=== PATIENT | female | born 1965 | race Caucasian/White ===

== ENCOUNTER 2022-07-29 16:17 | Emergency (ER) | payer BC, SELFPAY ==
--- NOTE | 2022-07-29 16:34 | ED.EAR ---
HPI - Ear Problem General Chief complaint: Ear Stated complaint: loss of hearing lt ear Time Seen by Provider: 07/29/22 16:34 Source: patient Mode of arrival: ambulatory Limitations: no limitations History of Present Illness HPI Narrative: Ms. Buck is a 56-year-old female patient presenting to the clinic today with complaints of hearing loss in her left ear x1 day. She reports she has been deaf in the right ear since . She reports that she is unable to hear in her left ear as everything is muffled. She denies any pain or discharge coming from the ear. She denies wearing a hearing aid in the left ear. She denies any headache, dizziness, or nausea/ vomiting. States that she has had ringing in the ear for a long time. No history of M?ni?re's disease and denies any dizziness currently but states that sometimes she is unsteady on her feet. Reports that she has recently saw an ENT 2 weeks ago for her right ear. Related Data Home Medications Medication Instructions Recorded Confirmed oxybutynin chloride 10 mg 10 mg PO DAILY 07/29/22 07/29/22 tablet,extended release 24 hr sertraline 25 mg tablet 25 mg DAILY 07/29/22 07/29/22 Allergies Allergy/AdvReac Type Severity Reaction Status Date / Time No Known Allergies Allergy Verified 07/29/22 16:44 Review of Systems Review of Systems: Pertinent positives per HPI. Patient denies any fever, chills, rash, headache, visual changes, dizziness, cough, runny nose, sore throat, shortness of breath, chest pain, palpitations, nausea, vomiting, diarrhea, constipation, abdominal pain, or any urinary issues. PMFSH Family History Family History Mother Hypertension Father Family history of diabetes mellitus in first degree relative Family history of heart disease in male family member before age 55 Social History Social History Smoking status: Never smoker Alcohol intake: never Comments At the time of my signature, I reviewed and agree with the nursing past medical, surgical, social, and family history. There is no relevant family history pertinent to the patient complaint. Exam Narrative: General: Well-developed, well nourished, in no apparent distress Head: Normocephalic, atraumatic Eyes: Pupils equally round and reactive to light bilaterally, EOM intact, sclera and conjunctive clear, no discharge, lids normal Ears: Right TM intact and opaque, left TM intact and clear, ear canals clear, no drainage, grossly hearing normal. Nose: Nares patent, no discharge, no inflammation, no sinus tenderness. Mouth: Oropharynx without lesions or masses, good dentition, MMM. Neck: Supple, trachea midline, no enlargement of anterior or posterior cervical nodes, no thyroid masses or goiter palpable. Cardio: Regular rate and rhythm, s1 and s2 normal, no murmur appreciated. Resp: Clear to auscultation bilaterally anteriorly and posteriorly, no rhonchi, rales, wheezing or rubs Neuro: Conscious alert and oriented x4, able to lip read and answer questions appropriately, definite hearing loss to the left ear likely sensorineural Course Course Emergency Course: Portions of this record may have been created with voice recognition software. Level of Care: Express Care Visit Vital Signs Vital signs: Vital signs reviewed Medical Decision Making [facility] Narrative Medical decision making narrative: At the time of visit patient is resting comfortably on the exam table. I suspect the patient has sensorineural hearing loss. Her ear canal is clear and tympanic membrane is clear. I will start her on a prescription of prednisone 60 mg daily x10 days. She is to contact ENT doctor tomorrow to be evaluated as soon as possible. Supportive measures were discussed with the patient she voiced understanding of discharge instructions and agrees to treatment plan Differential
[2022-07-29 16:39] VITALS: BP 145/87; PULSE 66; RESP 18; TEMP 36.6; O2SAT 99
== END 2022-07-29 17:10 | disposition home or self-care (01) ==
PROVIDERS: Emergency Provider Nurse Practitioner Family; PCP Physician Assistant Medical
DX: H91.92 Unspecified hearing loss, left ear (principal); F32.A Depression, unspecified
CPT/HCPCS: 99203; G0463

== ENCOUNTER 2022-10-11 18:16 | Emergency (ER) | payer BC, SELFPAY ==
[2022-10-11 18:20] VITALS: BP 159/96; PULSE 71; RESP 16; TEMP 36.6; O2SAT 97
--- NOTE | 2022-10-11 20:07 | ED.EAR ---
HPI - Ear Problem General Chief complaint: Ear Stated complaint: can't hear out of her left ear, new Time Seen by Provider: 10/11/22 19:58 Source: patient, RN notes reviewed and old records reviewed Mode of arrival: ambulatory Limitations: no limitations History of Present Illness HPI Narrative: This is a 57 year old female with history of deafness to right ear who presents for evaluation of decreased hearing from her left ear. She has been having decreased hearing from her left ear in July and at that time she was started on steroids. She had improvement initially but she has noticed since September 29 that she has worsening hearing again. She is having a buzzing in her ear. She has been unable to get in to see ENT since symptoms worsened. She was started on Prednisone 30 mg by PCP a few days ago. She denies fever, chills, vertigo, vomiting, focal weakness or difficulty walking. She wants to make sure she does not have ear wax impaction or ear infection. She reports mild frontal headache. Related Data Home Medications Medication Instructions Recorded Confirmed oxybutynin chloride 10 mg 10 mg PO DAILY 07/29/22 09/23/22 tablet,extended release 24 hr Allergies Allergy/AdvReac Type Severity Reaction Status Date / Time No Known Allergies Allergy Verified 09/23/22 09:59 Review of Systems Review of Systems: All systems reviewed & are unremarkable except as noted in HPI and below Constitutional: Constitutional: Denies chills, Denies fatigue and Denies fever(s) ENT: Denies vertigo and Denies nasal congestion PMFSH Past Medical History Medical History (Updated 10/11/22 @ 20:19 by Melina Heller MD) Anxiety Hearing loss in right ear Family History Family History (Updated 09/23/22 @ 10:03 by SARITA Schaeffer) Mother Alzheimer disease Father Family history of diabetes mellitus in first degree relative Family history of heart disease in male family member before age 55 AA (alcohol abuse) Cancer Hypertension Sibling AA (alcohol abuse) Cancer Son AA (alcohol abuse) Asthma Hypertension Depression Grandparent AA (alcohol abuse) Cancer Diabetes mellitus Social History Social History Smoking status: Never smoker Alcohol intake: current Alcohol use details: social Substance use: never Additional occupation/education comments: homemaker Gender identity (if verbalized by the patient): Female Exam Const: General: healthy appearing, no acute distress and alert Nutritional Appearance: well nourished Orientation/consciousness: patient oriented x3 Limitations: no limitations HENMT: Head: normal to inspection Ears: external ears normal and TM's normal bilaterally Face/Nose/Sinus: Normal external nose present Face and sinus: normal facial exam Eyes: Conjunctivae: conjunctivae normal EOM: EOMs intact bilaterally Neck: Neck: normal visual inspection Chest: Chest palpation & inspection: normal inspection of the chest Resp: Effort & Inspection: normal respiratory effort Skin: General skin exam: normal color Rashes: no rashes Wounds: no wounds Neuro: General: patient oriented x3, moves all extremities and CN's II-XI intact bilaterally Psych: Mental Status: mental status grossly normal Course Reevaluation(s) Reevaluation #1: We will start high dose prednisone and they will call Dr. Dominguez on Friday. Date: 10/11/22 Time: 20:11 Vital Signs Vital signs: Vital Signs Temperature 97.9 F 10/11/22 18:20 Pulse Rate 71 10/11/22 18:20 Respiratory Rate 16 10/11/22 18:20 Blood Pressure 159/96 H 10/11/22 18:20 Pulse Oximetry 97 10/11/22 18:20 Oxygen Delivery Room Air 10/11/22 18:20 Temperature 97.9 F 10/11/22 18:20 Pulse Rate 71 10/11/22 18:20 Respiratory Rate 16 10/11/22 18:20 Blood Pressure 159/96 H 10/11/22 18:20 Pulse Oximetry 97 10/11/22 18:20 Oxygen Delivery Dianne
== END 2022-10-11 20:27 | disposition home or self-care (01) ==
PROVIDERS: Emergency Provider General Practice; PCP Physician Assistant Medical
DX: H93.12 Tinnitus, left ear (principal); H91.93 Unspecified hearing loss, bilateral
CPT/HCPCS: 99283

== ENCOUNTER 2022-10-28 11:03 | Outpatient (CLI) | payer BC, SELFPAY | END 2022-10-28 11:04 | disposition home or self-care (01) | LOC: ANHAUDIO 11:04 | PROVIDERS: PCP Physician Assistant Medical; Visit Provider Otolaryngology | DX: H93.12 Tinnitus, left ear (principal); H90.3 Sensorineural hearing loss, bilateral | CPT/HCPCS: 92557; 92567 ==

== ENCOUNTER 2022-11-05 10:39 | Outpatient (CLI) | payer BC, SELFPAY ==
--- NOTE | ~2022-11-05 | MR_ITS ---
EXAMINATION: MR IAC wo/w con DATE: 11/05/2022 11:41 INDICATION: One month of left-sided hearing loss and one week of frontal headache TECHNIQUE: Magnetic resonance imaging (MRI) of the brain and brainstem was performed without and with 18 mL Multihance intravenous contrast. Sequences included sagittal and axial T1-weighted FSE, axial diffusion-weighted FS EPI, axial T2*-weighted SWAN, axial T2-weighted FLAIR Propeller, axial T2-weigh román Propeller, small ppwit-gf-[id number] coronal FIESTA, small zrkho-lj-dnjc coronal T1-weighted FSE, and s mall uwkcb-[id number] axial T1-weighted SPGR. Postcontrast sequences included axial T1-weighted FSE, sma ll ypikh-ht-ldqq coronal T1-weighted FSE, and small eglzs-bc-fsct axial T1-weighted SPGR. Apparent di ffusion coefficient (ADC) maps were created. COMPARISON: None. FINDINGS: There are no areas of restricted diffusion to suggest acute infarction. No intracranial hemorrhage or abnormal intracranial mass lesion. Small old lacunar infarct at the left lentiform nucleus. There ar e a few small scattered small foci of nonspecific increased T2-weighted signal intensity in the cereb ral white matter, predominantly involving the deep and periventricular white matter which is within n ormal limits for age. There are no intraparenchymal signal abnormalities seen on the other pulse sequ ences. The ventricles are symmetric and normal in size. Normal bilateral seventh/eighth cranial nerve complexes. No cerebellopontine angles masses. No evidence of mastoid or middle ear fluid. There a re no abnormal extra-axial fluid collections. Flow voids are seen in the cerebral arteries on the T2- weighted sequences consistent with their expected patency. Mucous retention cyst in the left maxillar y sinus. Visualized orbits and soft tissues are unremarkable. There are no areas of abnormal enhancem ent on the post contrast images. IMPRESSION: 1. No acute intracranial process, abnormally enhancing brain lesions or etiology identified for repor román left-sided hearing loss. 2. Small old lacunar infarct at the left lentiform nucleus. Reviewed, dictated and finalized at location A. E MERCHANDISER IMPRESSION: 1. No acute intracranial process, abnormally enhancing brain lesions or etiolog y identified for reported left-sided hearing loss. 2. Small old lacunar infarct at the left lentiform nucleus.
== END 2022-11-05 10:40 | disposition home or self-care (01) ==
PROVIDERS: PCP Internal Medicine; Visit Provider Otolaryngology
DX: H91.91 Unspecified hearing loss, right ear (principal); Z86.73 Personal history of transient ischemic attack (TIA), and cerebral infarction without residual deficits
CPT/HCPCS: 70553; A9577

== ENCOUNTER → 2023-08-21 12:30 | Outpatient (CLI) | payer BC, SELFPAY ==
--- NOTE | ~2023-08-21 | MM_ITS ---
EXAMINATION: MM screening alona BI w ira HISTORY: Screening TECHNIQUE: Craniocaudal and mediolateral oblique 3-D tomosynthesis images were obtained and synthetic 2-D images were generated. CAD analysis was submitted and interpreted. COMPARISON: No prior mammogram is available for comparison at this institution. BREAST PARENCHYMAL COMPOSITION: The breasts are almost entirely fatty. FINDINGS: There is no evidence of suspicious mass, calcification, or architectural distortion to sugg est malignancy in either breast. There has been no suspicious interval change. IMPRESSION: 1. No mammographic evidence of malignancy. 2. Recommend routine screening mammography in one year. BI-RADS Category 1: Negative Reviewed, dictated and finalized at location A.
== END ==
PROVIDERS: PCP Physician Assistant Medical; Visit Provider Physician Assistant Medical
DX: Z12.31 Encounter for screening mammogram for malignant neoplasm of breast (principal)
CPT/HCPCS: 77063; 77067

== ENCOUNTER 2023-11-21 14:00 | Outpatient (RCR) | payer BC, SELFPAY ==
--- NOTE | 2023-09-18 14:56 | PTOPEVAL1 ---
Assessment and note entered by Eli Osullivan, PT Evaluation Information Assessment Status Evaluation Diagnosis dizziness/giddiness Therapy diagnosis BPPV Right side Subjective Information Started about a month ago with dizziness. Prior to that was unsteady . When it started, they were camping, she got dizzy, sick, went to sleep and was better when got up. A week later same pattern. since then daily or every other day this would happen. Nausea/vomiting improved. When say PCP was provided meclizine and htis helped though it makes her tired. But will feel out of it . Has been ok for a little over a week. Pt reports got cochlear implant 6 months ago right ear and hasn't had any issues. A year ago lost hearing but has returned some. Is on an off. Has had MRI's multiple tests and couldn 't find anything wrong. Reported Pain Level Pain Score 0: Self Report Assessment PT Clinical Summary Pt presents with complaints of dizziness with nausea and vomiting that has improved but for a time would relapse and remit. Pt demo's decreased balance freeman with decreased base of support activities with eyes closed. Also reports increased symptoms with inner ear testing related to right side today. However patient also demo's significant cervical restrictions as well. Thus patient would benefit from physical therapy to address deficits and return to PLOF. Plan of Care Interventions Electrical Stimulation,Hot Pack/Cold Pack, Mechanical Traction,Neuro Re-education,Therapeutic Activities,Therapeutic Exercise,Ultrasound, INTELLIGENCE CONSULTANT PT Services Indicated Yes Treatment Frequency and 1-2x weekly x 4 weeks Duration These treatments will address the objective and functional deficits as defined above. The patient will be advanced safely and appropriately in order for the patient to progress towards his/her prior level of function. Additional exercises will be introduced and as well as a comprehensive home exercise program upon discharge, if needed, ?to ensure carryover of functional gains achieved in the clinic. This treatment plan has been reviewed and agreement upon by the patient.
--- NOTE | 2023-09-18 14:57 | OPREHPOC ---
Outpatient Therapy Plan of Care This is a Multidisciplinary Plan of Care that may contain components documented by all disciplines (PT, OT, and ST.) PT Problem 1 PT Problem #1 Knowledge Deficit PT Goal 1 Goal Pt will be independent in HEP Pt will verbalize understanding of diagnosis and prognosis Target Visit 8 PT Goal 1 Goal Pt will demo tandem stance R/L foot forward x 15 seconds eyes closed without [employer]ER Target Visit 8 PT Goal 2 Goal Pt will report resolution of symptoms with activities Target Visit 16
--- NOTE | 2023-10-10 10:27 | PCPTNOTE ---
Patient called & cancelled scheduled appointment this date due to having had a dizziness episode and is unable to drive herself to therapy today
--- NOTE | 2023-10-16 16:40 | PTOPPROG ---
Assessment and note entered by Eli Osullivan, PT Assessment Status Progress Diagnosis dizziness/giddiness Therapy diagnosis abnormal posture, stiffness cervical spine Subjective Information After last session, did ok after the maneuver but then the next night had a dizzy spell without vomiting. Had a dizzy spell start, went and rested then was ok. Today feels off still. Prior to recent flare up was doing really well. When did have a dizzy spell would be lite. Then had a flare up the resulted in N/V and lasted over the weekend. Self-perceived improvement: 50% There were a few days with no symptoms whatsoever Assessment PT Clinical Summary Pt presents with continued dizziness and vertigo that had been progressing but then patient had a significant flare up which lasted ~ 12 hours. Since then she has been improving but has yet to reach her level of improvement from prior to flare up. Pt also demo's decreased cervical ROM, postural abnormalities, and tonicity of surrounding musculature which may be effecting progression of vertigo. Thus patient will benefit from addition of cervical therapy to Amber maneuver in order to better progress through dizziness issues and improve overall function Plan of Care Interventions Electrical Stimulation,Hot Pack/Cold Pack, Mechanical Traction,Neuro Re-education,Therapeutic Activities,Therapeutic Exercise,Ultrasound PT Services Indicated Yes Treatment Frequency and continue 1-2x weekly x 4 weeks Duration These treatments will address the objective and functional deficits as defined above. The patient will be advanced safely and appropriately in order for the patient to progress towards his/her prior level of function. Additional exercises will be introduced and as well as a comprehensive home exercise program upon discharge, if needed, ?to ensure carryover of functional gains achieved in the clinic. This treatment plan has been reviewed and agreement upon by the patient.
--- NOTE | 2023-11-10 14:48 | PCPTNOTE ---
Patient called & cancelled scheduled appointment this date due to increased dizziness and symptoms and has no one to drive her to therapy.
--- NOTE | 2023-11-21 14:46 | PTOPDC ---
Assessment and note entered by Eli Osullivan, PT Assessment Status Discharge Diagnosis dizziess/giddiness Subjective Information Was sick 11/07/23 Started Topomax on 11/12/23 per ENT Has not started Diazepam, was just going to take this when had spells. Has not had an episode since 11/07/23 11/18/[address] [place] [address] [place] and stress of traffic, was a little off but it resolved by evening. Currently feels pretty much back to normal besides hearing issues. Has not been wearing her cochlear, last time was at audiology they turned the volume down. Has also been going to chiropractor 2x weekly and can turn head better now. Reported Pain Level Pain Score 2: Self Report Assessment PT Clinical Summary Pt has attended therapy somewhat consistently for dizziness/vertigo. Initially with focus on BPPV and COOK SHIP maneuvers, then changing to cervicogenic possibility. Pt continued to have on and off symptoms, trying multiple avenues of relief. Recently with return to PCP and ENT appointment has started new medications and feels improved overall. Pt also has additional follow ups to r/o cardiac causes. However she has met max benefit for physical therapy at this time thus is being discharged from services.
== END 2023-11-21 14:56 | disposition home or self-care (01) ==
LOC: ANHHIPT 14:00
PROVIDERS: PCP Physician Assistant Medical; Visit Provider Physician Assistant Medical
DX: R42 Dizziness and giddiness (principal)
CPT/HCPCS: 95992; 97014; 97110; 97112; 97140; 97162; 97750; G0283

== ENCOUNTER 2024-03-17 09:16 | Outpatient (CLI) | payer BC, SELFPAY ==
--- NOTE | ~2024-03-17 | US_ITS ---
Limited Abdominal Sonogram: Real-time sonographic imaging of the right upper quadrant was performed. Clinical History: Abdominal pain Findings: The liver appears echogenic, with no evidence of mass lesion or bile duct dilatation. Main portal vein demonstrates normal direction of flow. The gallbladder is well distended, and demonstrat es echogenic, shadowing gallstone. No gallbladder wall thickening evident. The common bile duct measu res 3 mm. The visualized pancreas, aorta, and IVC are unremarkable. Impression: Cholelithiasis. Diffuse fatty infiltration of liver. Reviewed, dictated and finalized at location M. Impression: Cholelithiasis. Diffuse fatty infiltration of liver.
--- NOTE | ~2024-03-17 | NM_ITS ---
EXAMINATION: NM hepatobiliary w pharm DATE: 03/17/2024 12:37 INDICATION: Right upper quadrant abdominal pain COMPARISON: None. TECHNIQUE: 5 mCi Tc-99m mebrofenin (Choletec) was administered intravenously. Scintigraphic images o f the abdomen were obtained for one hour. 1.9 mcg sincalide (Kinevac) was administered by slow intrav enous infusion, and imaging was continued for 30 minutes. Gallbladder ejection fraction was calculate d by the technologist. FINDINGS: There is normal clearance of radiotracer from the blood pool. There is homogeneous tracer uptake by t he liver. Activity progresses to the gallbladder and bowel. The gallbladder ejection fraction (GBEF) is 19% (normal 10-90%, but most patient with gallbladder dysfunction have GBEF < 35% which does over lap with the normal range). IMPRESSION: 1. Normal hepatobiliary scan Reviewed, dictated and finalized at location A.
== END 2024-03-17 09:17 | disposition home or self-care (01) ==
PROVIDERS: PCP Physician Assistant Medical
DX: R10.11 Right upper quadrant pain (principal); K80.20 Calculus of gallbladder without cholecystitis without obstruction; K76.0 Fatty (change of) liver, not elsewhere classified
CPT/HCPCS: 76705; 78227; A9537; J2805